=== PATIENT | male | born 1950 | race African-American/Black ===

== ENCOUNTER 2023-06-10 12:37 | Outpatient (CLI) | payer MEDICARE, SELFPAY ==
--- NOTE | ~2023-06-10 | MR_ITS ---
EXAMINATION: MR pelvis wo/w con DATE: 06/10/2023 14:27 INDICATION: Malignant neoplasm of prostate. TECHNIQUE: Magnetic resonance imaging (MRI) of the pelvis was performed without and with 20 mL MultiH ance intravenous contrast. COMPARISON: None. FINDINGS: The prostate is severely enlarged. Areas of low signal in the prostate may be brachytherapy seeds, ca lcifications, or foci of old blood products. There are no pathologically enlarged lymph nodes. There is no osseous malignancy. IMPRESSION: 1. Severely enlarged prostate. No evidence of metastatic disease. Reviewed, dictated and finalized at location A. [employer]GER
== END 2023-06-10 12:38 | disposition home or self-care (01) ==
PROVIDERS: Visit Provider Radiology Radiation Oncology
DX: Z51.0 Encounter for antineoplastic radiation therapy (principal); C61 Malignant neoplasm of prostate; N40.0 Benign prostatic hyperplasia without lower urinary tract symptoms
CPT/HCPCS: 72197; A9577